=== PATIENT | male | born 1965 ===

== ENCOUNTER 2020-10-22 06:26 | Inpatient (IN) ==
[2020-10-19 11:34] LABS: Basophils # 0.1 10*3/uL (0.0-0.2); Basophils % 0.4 % (0.0-0.8); Eosinophils # 0.2 10*3/uL (0.0-0.87); Eosinophils % 1.5 % (0.00-10.9); Hematocrit 28.9 VOL% (42.0-52.0); Hemoglobin 10.2 GM/DL (14.0-18.0); Immature Granulocytes % 0.5 %; Immature Granulocytes Absolute 0.07 #; Lymphocytes % 7.9 % (21.2-54.2); Mean Corpuscular HGB Conc 35.3 GM/DL (32-36); Mean Corpuscular Volume 80.1 FL (87-102); Mean Platelet Volume 9.2 FL (9.6-12.0); Monocytes % 8.4 % (1.7-12.7); Neutrophils % 81.3 % (38.7-73.9); Platelet Count 388 T/CUMM (130-400); Red Blood Count 3.61 MC/CUMM (3.8-5.5); Red Cell Distribution Width 12.6 % (9.3-17.3); White Blood Count 12.8 T/CUMM (4-12)
[2020-10-19 11:39] LABS: PT Patient Result 10.7 SECS (10.5-12.0)
[2020-10-19 12:02] LABS: Alanine Aminotransferase 31 U/L (16-61); Alkaline Phosphatase 174 U/L (45-117); Aspartate Amino Transferase 23 U/L (0-37); Bilirubin,Total < 0.39 MG/DL (0.2-1.0); Blood Urea Nitrogen 28 MG/DL (7-18); Calcium 8.3 MG/DL (8.5-10.1); Carbon Dioxide 21 MMOL/L (21-32); Estimated Glom Filtration Rate 36 ML/MIN; Glucose 192 MG/DL (74-106); Potassium 3.9 MMOL/L (3.5-5.1); Sodium 136 MMOL/L (136-145); Total Protein 6.4 G/DL (6.4-8.2)
[2020-10-22] MEDS ORDERED: DIAZEPAM 5 MG TABLET PO ONE (08:15)
[2020-10-22] MEDS ORDERED: PIPERACILLIN/TAZOBACTAM 3,375 MG in SODIUM CHLORIDE 0.9% 100 ML IV ONE (08:18)
[2020-10-22] MEDS ORDERED: LACTATED RINGERS 1,000 ML IV SCH (08:30)
[2020-10-22] MEDS ORDERED: fentaNYL 100 MCG/2 ML VIAL IV ONE (09:15)
[2020-10-22] MEDS ORDERED: MIDAZOLAM 2 MG/2 ML VIAL IV ONE (09:15)
[2020-10-22] MEDS ORDERED: SODIUM CHLORIDE 0.9% 100 ML IV ONE (09:23)
[2020-10-22] MEDS ORDERED: PIPERACILLIN/TAZOBACTAM 3,375 MG VIAL IV ONE (09:23)
[2020-10-22] MEDS ORDERED: HEPARIN 5,000 UNIT/1 ML VIAL ONE (09:50)
[2020-10-22] MEDS ORDERED: HEPARIN/NACL 0.9% 2 UNITS/ML 4,000 UNIT/2,000 ML BAG IV ONE (09:51)
[2020-10-22] MEDS ORDERED: HEPARIN 5,000 UNIT/1 ML VIAL IV PRN ×2 (10:43→11:10)
[2020-10-22] MEDS ORDERED: HEPARIN 1,000 UNIT/1 ML VIAL ONE (11:10)
[2020-10-22] MEDS ORDERED: ONDANSETRON 4 MG/2 ML VIAL IV PRN (13:57)
[2020-10-22] MEDS ORDERED: ACETAMINOPHEN 325 MG TABLET PO PRN (13:57)
[2020-10-22] MEDS ORDERED: GLUCAGON 1 MG VIAL IM PRN (13:57)
[2020-10-22] MEDS ORDERED: DEXTROSE 50% 25 GM/50 ML VIAL IV PRN (13:57)
[2020-10-22] MEDS ORDERED: amLODIPine 5 MG TABLET ONE (13:57)
[2020-10-22] MEDS ORDERED: amLODIPine 5 MG TABLET PO ONE (13:59)
[2020-10-22] MEDS ORDERED: DOCUSATE SODIUM 100 MG CAPSULE PO PRN (15:17)
[2020-10-22] MEDS ORDERED: ALBUTEROL 2.5 MG/3 ML NEB RESP TX PRN (15:17)
[2020-10-22 15:27] LABS: Bilirubin,Urine Negative (Negative); Blood, Urine Small mg/dL (Negative); Glucose,Urine (UA) 150 mg/dL (Negative); Hyaline Casts,Urine 1 /LPF (0-3); Ketones,Urine Negative (Negative); Mucus,Urine Occasional /LPF (Occasional); Nitrite,Urine Negative (Negative); Protein,Urine >=500 MG/DL; RBC,Urine 1 /HPF (0-4); Urine Appearance CLEAR (Clear); Urine Color Yellow (Yellow); Urine Specific Gravity 1.023 (1.001-1.035); Urine Urobilinogen < 2.0 EU/DL (0.2-1.0)
[2020-10-22] MEDS: hydrALAZINE 20 MG/1 ML VIAL IV PRN (15:41)
[2020-10-22 15:47] LABS: Basophils # 0.1 10*3/uL (0.0-0.2); Basophils % 0.4 % (0.0-0.8); Eosinophils # 0.1 10*3/uL (0.0-0.87); Eosinophils % 0.6 % (0.00-10.9); Hematocrit 29.6 VOL% (42.0-52.0); Hemoglobin 10.3 GM/DL (14.0-18.0); Immature Granulocytes % 1.2 %; Immature Granulocytes Absolute 0.15 #; Lymphocytes # 0.9 10*3/uL (1.4-4.0); Mean Corpuscular HGB Conc 34.8 GM/DL (32-36); Mean Platelet Volume 8.9 FL (9.6-12.0); Neutrophils % 83.8 % (38.7-73.9); Platelet Count 462 T/CUMM (130-400); Red Cell Distribution Width 12.6 % (9.3-17.3); White Blood Count 12.6 T/CUMM (4-12)
[2020-10-22 16:10] LABS: Albumin 1.7 G/DL (3.4-5.0); Bilirubin,Total 0.4 MG/DL (0.2-1.0); Calcium 8.3 MG/DL (8.5-10.1); Osmolality,Calculated 281.1 MOS/KG (273-304); Potassium 3.6 MMOL/L (3.5-5.1); Total Protein 6.8 G/DL (6.4-8.2)
[2020-10-22 16:23] LABS: % Iron Saturation 10.9 % (18-50); Ferritin 395.6 ng/ml (26-388)
[2020-10-22] MEDS: SODIUM CHLORIDE 0.45% 1,000 ML IV SCH (16:32)
[2020-10-22] MEDS: PIPERACILLIN/TAZOBACTAM 3,375 MG in SODIUM CHLORIDE 0.9% 100 ML IV SCH (17:27)
[2020-10-22] MEDS: INSULIN REGULAR 100 UNIT/ML SUBCUT SCH ×2 (17:28→21:30)
[2020-10-22 17:50] LABS: Sedimentation Rate-Westergren 121 MM/HR (0-20)
[2020-10-22] MEDS ORDERED: INSULIN LISPRO 100 UNIT/ML SUBCUT SCH (21:00)
[2020-10-22] MEDS: amLODIPine 5 MG TABLET PO SCH (21:29)
[2020-10-23] MEDS: PIPERACILLIN/TAZOBACTAM 3,375 MG in SODIUM CHLORIDE 0.9% 100 ML IV SCH ×3 (01:50→17:23)
[2020-10-23 07:01] LABS: Basophils # 0.1 10*3/uL (0.0-0.2); Basophils % 0.4 % (0.0-0.8); Eosinophils # 0.2 10*3/uL (0.0-0.87); Eosinophils % 1.4 % (0.00-10.9); Hematocrit 30.5 VOL% (42.0-52.0); Hemoglobin 10.3 GM/DL (14.0-18.0); Immature Granulocytes % 1.3 %; Immature Granulocytes Absolute 0.17 #; Lymphocytes % 7.8 % (21.2-54.2); Mean Corpuscular HGB Conc 33.8 GM/DL (32-36); Mean Corpuscular Volume 80.9 FL (87-102); Mean Platelet Volume 8.5 FL (9.6-12.0); Monocytes % 8.6 % (1.7-12.7); Neutrophils % 80.5 % (38.7-73.9); Platelet Count 483 T/CUMM (130-400); Red Blood Count 3.77 MC/CUMM (3.8-5.5); Red Cell Distribution Width 12.7 % (9.3-17.3); White Blood Count 13.2 T/CUMM (4-12)
[2020-10-23 07:34] LABS: Folate 8.28 NG/ML (5.38-24.0); Vitamin B12 542 PG/ML (211-911)
[2020-10-23 07:50] LABS: Calcium 8.6 MG/DL (8.5-10.1); Osmolality,Calculated 275.8 MOS/KG (273-304); Potassium 3.5 MMOL/L (3.5-5.1); Risk Ratio 4.86; Thyroid Stimulating Hormone 11.5 uIU/ml (0.358-3.74); VLDL CHOLESTEROL 20.8 MG/DL
[2020-10-23] MEDS: INSULIN REGULAR 100 UNIT/ML SUBCUT SCH ×4 (07:54→21:03)
[2020-10-23 08:10] LABS: Hemoglobin A1 (Alkaline) 97.7 % (96.5-98.5); Hemoglobin A2 (Alkaline) 2.3 % (1.5-3.5)
[2020-10-23] MEDS ORDERED: MIDAZOLAM 2 MG/2 ML VIAL ONE (08:58)
[2020-10-23] MEDS ORDERED: propofoL 200 MG/20 ML VIAL IV ONE ×2 (08:58→09:52)
[2020-10-23] MEDS ORDERED: fentaNYL 100 MCG/2 ML VIAL ONE (08:58)
[2020-10-23] MEDS ORDERED: LIDOCAINE 2% 5 ML VIAL ONE (08:58)
[2020-10-23] MEDS ORDERED: LIDOCAINE 1% 20 ML VIAL ONE (09:27)
[2020-10-23] MEDS ORDERED: LACTATED RINGERS 1,000 ML IV SCH (09:30)
[2020-10-23] MEDS ORDERED: KETAMINE 500 MG/10 ML VIAL ONE (09:35)
[2020-10-23] MEDS: ENOXAPARIN 30 MG/0.3 ML SYRINGE SUBCUT SCH (09:37)
[2020-10-23] MEDS ORDERED: ONDANSETRON 4 MG/2 ML VIAL ONE (09:52)
[2020-10-23] MEDS ORDERED: SODIUM CHLORIDE 0.9% 100 ML IV ONE (09:52)
[2020-10-23] MEDS ORDERED: GLUCAGON 1 MG VIAL IM PRN (10:13)
[2020-10-23] MEDS ORDERED: DEXTROSE 50% 25 GM/50 ML VIAL IV PRN (10:13)
[2020-10-23] MEDS: ASPIRIN EC 81 MG TABLET PO SCH (12:04)
[2020-10-23] MEDS: amLODIPine 5 MG TABLET PO SCH ×2 (12:04→21:02)
[2020-10-23] MEDS: PANTOPRAZOLE 40 MG TABLET PO SCH (12:04)
[2020-10-23] MEDS: FENOFIBRATE 145 MG TABLET PO SCH (12:04)
[2020-10-23] MEDS: ERGOCALCIFEROL 50,000 UNIT CAPSULE PO SCH (12:04)
[2020-10-23] MEDS: CHLORTHALIDONE 25 MG TABLET PO SCH (12:05)
[2020-10-23] MEDS: SODIUM CHLORIDE 0.45% 1,000 ML IV SCH (12:15)
[2020-10-23] MEDS: FERROUS SULFATE 325 MG TABLET PO SCH (17:22)
[2020-10-23] MEDS ORDERED: INSULIN GLARGINE 100 UNIT/ML SUBCUT SCH (21:00)
[2020-10-24] MEDS: PIPERACILLIN/TAZOBACTAM 3,375 MG in SODIUM CHLORIDE 0.9% 100 ML IV SCH ×2 (00:31→09:26)
[2020-10-24 06:46] LABS: Calcium 8.2 MG/DL (8.5-10.1); Osmolality,Calculated 277.8 MOS/KG (273-304); Potassium 3.5 MMOL/L (3.5-5.1)
[2020-10-24] MEDS: INSULIN REGULAR 100 UNIT/ML SUBCUT SCH ×2 (07:35→11:14)
[2020-10-24] MEDS: ENOXAPARIN 30 MG/0.3 ML SYRINGE SUBCUT SCH (09:25)
[2020-10-24] MEDS: FENOFIBRATE 145 MG TABLET PO SCH (09:26)
[2020-10-24] MEDS: CHLORTHALIDONE 25 MG TABLET PO SCH (09:26)
[2020-10-24] MEDS: ASPIRIN EC 81 MG TABLET PO SCH (09:26)
[2020-10-24] MEDS: ERGOCALCIFEROL 50,000 UNIT CAPSULE PO SCH (09:26)
[2020-10-24] MEDS: PANTOPRAZOLE 40 MG TABLET PO SCH (09:26)
[2020-10-24] MEDS: hydrALAZINE 20 MG/1 ML VIAL IV PRN (09:30)
[2020-10-24] MEDS: FERROUS SULFATE 325 MG TABLET PO SCH (10:59)
[2020-10-24] MEDS: amLODIPine 5 MG TABLET PO SCH (10:59)
[2020-10-24 12:32] VITALS: BP 168/84
== END 2020-10-24 15:51 | disposition home or self-care (01) | DRG 240 ==
LOC: N.RAD 06:26 → N.SDSINP 06:28 → N.3E 16:30
PROVIDERS: ADMIT Surgery; ATTEND Surgery